=== PATIENT | female | born 1975 | race Hispanic/Latino ===

== ENCOUNTER 2021-11-30 07:40 | Emergency (ER) | payer OTHER ==
[~2021-11-30] VITALS: Ht 154.9 cm; Wt 88.5 kg
[2021-11-30] MEDS ORDERED: KETOROLAC TROMETHAMINE 30 MG/ML VIAL IV STA (08:44)
[2021-11-30] MEDS ORDERED: NAPROSYN500 MG PO (09:25)
[2021-11-30] MEDS ORDERED: FAMOTIDINE40 MG PO (09:27)
[2021-11-30 09:30] VITALS: BP 114/65
== END 2021-11-30 09:30 | disposition home or self-care (01) ==
LOC: FSED 07:45
DX: M25.512 Pain in left shoulder (principal); R07.89 Other chest pain; K21.9 Gastro-esophageal reflux disease without esophagitis
CPT/HCPCS: 71046; 73030; 80053; 81003; 81025; 82553; 84484; 85025; 85379; 93005; 99283; J1885